=== PATIENT | female | born 1935 | race Caucasian/White ===

== ENCOUNTER 2016-09-20 08:15 | Inpatient (IN) ==
[2016-09-20 10:49] LABS: Hematocrit 32.5 % (35.3-44.9); Hemoglobin 10.4 g/dL (11.5-15.4); Mean Corpuscular Hemoglobin 29.3 pg (28.0-33.3); Mean Corpuscular Volume 91.5 fL (83.0-100.0); Mean Platelet Volume 9.6 fL (9.4-12.4); Platelet Count 219 K/mcL (140-400); Red Blood Count 3.55 M/mcL (3.82-4.97); Red Cell Distribution Width 13.1 % (11.5-14.5)
[2016-09-20] MEDS ORDERED: 0.9 % Sodium Chloride 1,000 ML IVC ONE (11:03)
[2016-09-20 11:04] LABS: Alanine Aminotransferase 24 Units/L (0-55); Albumin 3.3 g/dL (3.5-5.0); Albumin/Globulin Ratio 1.4 (1.1-2.2); Alkaline Phosphatase 73 Units/L (38-126); Aspartate Amino Transferase 33 Units/L (5-34); BUN/Creatinine Ratio 30 (6-26); Bilirubin,Total 0.9 mg/dL (0.2-1.2); Blood Urea Nitrogen 24 mg/dL (7-20); Calcium 8.3 mg/dL (8.6-10.8); Carbon Dioxide 21 mEq/L (19-29); Chloride 109 mEq/L (98-109); Globulin 2.4 g/dL (2.4-3.5); Glucose 156 mg/dL (70-99); Osmolality,Calculated 295 (280-300); Sodium 139 mEq/L (136-145); Total Protein 5.7 g/dL (6.0-8.3); eGFR For African Americans > 60 (> 60); eGFR For Non-African Americans > 60 (> 60)
[2016-09-20] MEDS ORDERED: Ondansetron 4 MG/2 ML VIAL IVP PRN (11:06)
[2016-09-20] MEDS ORDERED: Naloxone 0.4 MG/ML INJ IVP PRN (11:06)
[2016-09-20] MEDS ORDERED: 0.9 % Sodium Chloride 1,000 ML IVC SCH ×3 (11:15→15:15)
[2016-09-20 12:17] LABS: Magnesium 1.4 mg/dL (1.6-2.6)
--- NOTE | 2016-09-20 13:13 | Internal Med History&Physical ---
<Parish Page - Last Filed: 09/20/16 13:59> Date of Encounter: 09/20/16 Time of Encounter: 13:12 Assessment and Plan (1) GI bleed Current visit: Yes Status: Acute Currently the patient is hemodynamically stable. current Hg 10.4. This has dropped approximately a Gram since she was at the [place] ED. She has had active bleeding sine admission. I have ordered a second large bore IV and that is being placed now. Bleeding scan was performed and shows no active bleeding. Etiolo is likley upper given the history of Melena and NSAID use. However may also consider Diverticular given the amount of bleeding and diverticulosis seen on CT. I have started a protonix gtt. IV fluids. I have consulted Dr. Pond and discussed the case with him. We will keep her NPO and plan for EGD today. If negative and still bleeding may need further work up. No Pharmacologic DVT prophylaxis as she is actively bleeding. Hold antihypertensives. Appreciate Dr. Pond coming in today to Help us with this patient. (2) Acute blood loss anemia Current visit: Yes Status: Acute (3) Frail elderly Current visit: Yes Status: Acute (4) Gout Current visit: Yes Status: Acute advise against NSAIDS at this time. May consider different option as outpatient. No acute flairs at this time. (5) Hypertension Current visit: Yes Status: Acute holding lisinopril due to bleeding and had one episode of hypotention. continue to monitor closely. (6) Elevated BUN Current visit: Yes Status: Acute nonspecific but may support upper source of bleeding. (7) Hypomagnesemia Current visit: Yes Status: Acute replace (8) DVT prophylaxis Current visit: Yes Status: Acute EPCDs Internal Medicine - H&P: HPI Chief complaint: " I hace rectal bleeding" Admitted From: Emergency Dept Plans for Post Hospital Care: Home History of present illness: Ms. Holguin is a 81 year old female with pmh of HTN and gout. She states that she developed bleeding per rectum yesterday. However she states that the blood was dark initially and keeps getting joe. she had one large amount of bleeding here on the floor and then "passed a clot" down in Nuclear medicine. She dose admit to intermittent dizziness but states she has a 5 year history of vertigo. She denies chest pain or shortness of breath. No presyncope. She dose admit to havign some crampy lower right and lower left abdominal pain. This was mild and has resolved. She dose admit to recently being started on Aleve. She states that she takes 5 of the 12H extra strength pills everyday but dose not know the exact dose. She dose have a history of hemorrhoidal bleeding and has had surgery in the past for this. She states that this is much different and that the blood " is just pooring out" She dose not recall who her surgeon was but states it was [place]. She has had a colonoscopy in the past. Last colonoscopy per patient was 2011 and was remarkable only for hemorrhoids. She ahs no further complaints or concerns at this time. She has had nothing to eat today. Past Med Surg Social Fam HX - Past Medical History Medical history: hypertension, other (gout, hemorrhoids) Psychiatric history: no psych history - Past Surgical History Surgical History: orthopedic, other (foot), other (hemmorhoidal surgery) - Social History Smoking Status: Never smoker Smokeless Tobacco Status: No Alcohol use: none Drug use: none - Family History Mother Hx Family Cardiac Disorders: Yes (age 93) Internal Medicine - H&P: Meds Polyethylene Glycol 3350 [MiraLAX] 17 gm PO DAILY 01/18/16 [History] Lipoflavanoid 1 tab PO DAILY 04/14/16 [History] Meclizine [Antivert] 25 mg PO TID PRN #15 tablet 04/14/16 [Rx] Lisinopril-HCTZ 20-12.5 [Prinzide 20-12.5] 1 tab PO DAILY 09/20/16 [History] Allergies Sulfa (Sulfonamide Antibiotics) Allergy (Verified 09/20/16 07:09) Hives meloxicam Adverse Reaction (Verified 09/20/16 16:44) See Comments Blood in Stool- naproxen Adverse Reaction (Verified 09/20/16 16:44) See Comments Blood in stool- Penicillins [PCN] Adverse Reaction (Verified 09/20/16 16:44) See Comments Blood in stool nasal spray Allergy (Unknown, Uncoded 09/20/16 16:44) See Comments unsure All Systems PM: A 10-system review of systems was performed and is negative for pertinent findings except as documented above in the HPI. - Constitutional Constitutional: no anorexia, no chills, no excessive sweating, no fatigue, no fever(s), no falls, no lethargy, no malaise, no night sweats, no weakness, no weight gain, no weight loss - EENT Eyes: no blurry vision, no change in vision, no decreased night vision, no discharge, no loss of vision, no pain, no photophobia Ears: no decreased hearing, no ear discharge, no ear pain, no tinnitus Nose, mouth and throat: dry mouth, no bleeding gums, no dysphagia, no epistaxis , no nasal discharge, no neck pain, no sore throat - Cardiovascular Cardiovascular ROS IM: edema (HCTZ was recently stopped. mild. no orthopnea. ), no chest pain, no claudication, no diaphoresis, no dyspnea, no dyspnea on exertion, no lightheadedness, no palpitations, no syncope - Respiratory Respiratory: no cough, no dyspnea, no wheezing, no excessive phlegm production - Gastrointestinal Gastrointestinal: abdominal pain (as per HPI), hematochezia, melena, no diarrhea , no dyspepsia, no dysphagia, no early satiety, no hematemesis, no nausea, no tenesmus, no vomiting - Genitourinary Genitourinary: no change in urinary stream, no dysuria, no flank pain, no hematuria - Musculoskeletal Musculoskeletal ROS IM: no numbness, no tingling Additional comments: no new aches or pains - Integumentary Integumentary IM: no rash, no unusual bruising - Neurological Neurological ROS: vertigo, no confusion, no convulsions, no focal weakness, no numbness, no tingling, no tremor(s) - Endocrine Endocrine IM: no cold intolerance, no excessive sweating, no fatigue, no flushing, no heat intolerance, no polyphagia, no polyuria - Hematologic/Lymphatic Hematologic/Lymphatic: no easy bleeding, no easy bruising, no lymphadenopathy - Constitutional General appearance: Present: A&O X 3, no acute distress Exam: very pleasant - Head Head exam: Present: atraumatic, normocephalic - Eye Eye exam: Present: PERRL, conjuntiva pink, sclera anicteric Pupils: Present: PERRL - Neck Neck exam general surgery: Present: supple, trachea midline. Absent: lymphadenopathy - Respiratory Respiratory exam: Present: CTAB. Absent: accessory muscle use, rales, rhonchi, wheezes - Cardiovascular Cardiovascular exam: Present: RRR, +S1, +S2. Absent: diastolic murmur, gallop, rubs, systolic murmur - GI/Abdominal GI/Abdominal exam: Present: normal bowel sounds, soft, no peritoneal signs. Absent: distended, tenderness - Extremities Exam Extremities exam: Present: pedal edema (mild bilateral), warm, radial pulses palpable and symetrical. Absent: calf tenderness, cyanotic - Skin Skin exam: Present: dry, intact Internal Med - H&P Results - Labs CBC & Chem 7: 09/20/16 10:40 09/20/16 10:40 Labs: Short CBC 09/20/16 Range/Units 10:40 WBC 7.7 (4.3-11.1) K/mcL Hgb 10.4 L (11.5-15.4) g/dL Hct 32.5 L (35.3-44.9) % Plt Count 219 (140-400) K/mcL BMP 09/20/16 10:40 Sodium 139 Potassium 4.0 Chloride 109 Carbon Dioxide 21 BUN 24 H Creatinine 0.80 Glucose 156 H Calcium 8.3 L Liver Function 09/20/16 Range/Units 10:40 Total Bilirubin 0.9 (0.2-1.2) mg/dL AST 33 (5-34) Units/L ALT 24 (0-55) Units/L Alkaline Phosphatase 73 (38-126) Units/L Albumin 3.3 L (3.5-5.0) g/dL - Impressions ITS Impressions GI Bleed Scan Nuclear Medicine 09/20/16 10:30 IMPRESSION: No evidence of active GI bleeding during acquisition. RECOMMENDATIONS: If the patient shows hemodynamic signs of an active bleed in the next 20 hours, additional images can be acquired. D/ / 09/20/2016 12:44:00 Grzegorz Augustin MD / joe Interpreting Provider: Grzegorz Augustin MD <Skinny Caro - Last Filed: 09/20/16 17:05> Date of Encounter: 09/20/16 Internal Medicine - H&P: HPI History of present illness: Ms. Holguin is a 81 year old female All Systems PM: A 10-system review of systems was performed and is negative for pertinent findings except as documented above in the HPI. - Constitutional Vitals: Temp Pulse Resp BP Pulse Ox 98.2 F 95 12 143/80 98 09/20/16 14:52 09/20/16 15:21 09/20/16 15:21 09/20/16 15:21 09/20/16 15:21 Internal Med - H&P Results - Labs CBC & Chem 7: 09/20/16 16:10 09/20/16 10:40 Labs: Short CBC 09/20/16 09/20/16 Range/Units 10:40 16:10 WBC 7.7 (4.3-11.1) K/mcL Hgb 10.4 L 9.0 L (11.5-15.4) g/dL Hct 32.5 L 27.1 L (35.3-44.9) % Plt Count 219 (140-400) K/mcL BMP 09/20/16 10:40 Sodium 139 Potassium 4.0 Chloride 109 Carbon Dioxide 21 BUN 24 H Creatinine 0.80 Glucose 156 H Calcium 8.3 L Liver Function 09/20/16 Range/Units 10:40 Total Bilirubin 0.9 (0.2-1.2) mg/dL AST 33 (5-34) Units/L ALT 24 (0-55) Units/L Alkaline Phosphatase 73 (38-126) Units/L Albumin 3.3 L (3.5-5.0) g/dL - Impressions ITS Impressions GI Bleed Scan Nuclear Medicine 09/20/16 10:30 IMPRESSION: No evidence of active GI bleeding during acquisition. RECOMMENDATIONS: If the patient shows hemodynamic signs of an active bleed in the next 20 hours, additional images can be acquired. D/ / 09/20/2016 12:44:00 Grzegorz Augustin MD / [facility] Interpreting Provider: Grzegorz Augustin MD - Attending Attestation I examined this patient and my medical decision-making was reviewed with the Resident Physician, Dr. Page. I agree with the documented findings, disposition and treatment plan as described except to the extent set forth below. Patient appears diaphoretic anxious and pale. Heart is tachycardic regular S1- S2. Lungs are clear, abdomen soft nontender nondistended. Prior to my examining the patient she had passed a large amount of blood with clots per rectum which can still be seen and the potty. Patient has severe acute GI bleed for which we will treat her with IV fluids, nothing by mouth, consult GI. She will have an EGD this afternoon. Discussed case with Dr. Pond. Start Protonix drip. We will check hemoglobin and hematocrit every 4 hours for the next 12 hours. Then every 12 hours stabilizes. I proceeded to order a nuclear medicine bleeding scan which was done emergently and I have reviewed the report which shows no evidence of bleeding. Given her history of NSAID use and history consistent with melena we anticipate the need for emergent EGD tomorrow evaluate for bleeding gastric or duodenal ulcer. I have reviewed the CT abdomen and pelvis from the outside facility which shows evidence of diverticulosis without diverticulitis. This could be a diverticular bleed. I have reevaluated the patient after EGD. EGD found evidence of gastritis but no source of bleed. At this point I suspect the patient could have a massive lower GI bleed secondary to diverticular bleed. We will monitor the patient closely overnight. Continue with hemoglobin and hematocrit every 4 hours. Transfuse 1 unit PRBC stat. I discussed the case with the surgeon who recommends re-scanning the patient with nuclear medicine bleeding scan if she appears to be unstable and possible consult to interventional radiology for coiling if she becomes unstable. The patient remains unstable and there is high probability of emergent and significant clinical decompensation with potential impairment of organ function including cardiovascular system. I have performed 45 minutes of critical care time which involved decision making of high complexity to assess, manipulate, and support vital organ system, in order to prevent further life threatening deterioration of the patient's condition. The time involved in the performance of any procedures and a resident teaching was not counted toward critical care time and will be billed separately. Critical care time was spent evaluating the patient, reviewing EKGs, telemetry tracing, imaging studies and laboratory data , discussing the case with consultants, ordering medications and reevaluating for clinical response.
--- NOTE | 2016-09-20 14:15 | General Surgery Consult Note ---
Date of Encounter: 09/20/16 Time of Encounter: 14:01 History of Present Illness Requesting physician: Parish Page History of present illness: 81 yo, referred for further evaluation GI bleeding. Patient transferred to [facility] after presenting to [facility] with complaints of rectal bleeding 3. While waiting for the squad the patient describes 3 bloody bowel movements which were characterized as moderate to large in volume. After arriving at [facility] she had another bloody bowel movement. The emergency department assessed the bleeding is bright red the patient describes the initial bowel movement as black it is now "dark". An RBC tagged bleeding scan was completed earlier today and was found negative for any active GI hemorrhage. The patient was referred for possible upper GI bleeding as the patient admits to taking copious nonsteroidal anti-inflammatories as well as antigout medication since approximately June. The patient complains of feeling very weak and dizzy but also admits to having vertigo. The patient has been nothing by mouth we will proceed with an EGD MELINDA. Past medical history: Gout, vertigo, hypertension Surgical history: Tonsillectomy; hemorrhoidectomy 2, the most recent 2011; colonoscopy in 2011; toe surgery Allergies: Sulfa and penicillin Medications: Lisinopril 20 mg by mouth daily Lipoflavanoid 100 mg by mouth daily Meclizine 25 mg by mouth 3 times a day when necessary Social history: Patient is , lives at home with her spouse; G0; she has never smoked. She admits to a rare wine beverage. She denies any illicit drug use Family history: Noncontributory Physical examination reveals a woman who appears younger than her stated age. She is lying comfortably in her hospital bed in no acute distress. The patient is afebrile, 98.9; pulse currently elevated, range 101-103; respirations 18, blood pressure 140/84 Skin: Warm, no obvious jaundice Lungs: Clear, no obvious abdominal pain with deep inspiration Cardiac: Rapid rate but no discernible murmurs Abdomen: Soft, nontender. Bowel sounds present. No discernible intra- abdominal masses or rebound. Extremities without clubbing cyanosis or edema Rectal examination not necessary as there was obvious dark red blood per rectum Laboratories: White count 7.7, hemoglobin at 07:30 11.6, repeat at 10:40 10.4; hematocrit 35.9 at 07:30; 32.5 at 10:40 Platelet count has also diminished from 219,000 193,000; PT 12.8, INR 1.2 Electrolytes within normal limits. BUN elevated, currently 24. Creatinine 0.84. The elevated BUN is consistent with blood in the GI tract. Impression: 81-year-old female transferred to [facility] after presenting to [facility] with new onset rectal bleeding. Referral for upper endoscopy was placed after the patient revealed ingesting NSAIDs 4-5 times daily for gout symtoms. Rbc tagged bleeding scan completed earlier today, demonstrated the appropriate activity seen within the blood pool including the great vessels, heart, liver, and spleen. A small amount of activity had accumulated in the bladder. No abnormal accumulation was identified to suggest active bleeding during the study. EGD discussed with patient. Risks include hemorrhage, aspiration, cramping abdominal pain, bloating and perforation. The EGD may be non diagnostic. The patient expressed understanding. Consent for the procedure was granted. Past Med Surg Social Fam HX - Past Medical History Medical history: hypertension, other Psychiatric history: no psych history - Social History Smoking Status: Never smoker Smokeless Tobacco Status: No Alcohol use: none Drug use: none Medications and Allergies Lisinopril [Zestril] 20 mg PO DAILY 01/18/16 [History] Polyethylene Glycol 3350 [MiraLAX] 17 gm PO DAILY 01/18/16 [History] Lipoflavanoid 100 mg PO DAILY 04/14/16 [History] Meclizine [Antivert] 25 mg PO TID PRN #15 tablet 04/14/16 [Rx] Allergies Sulfa (Sulfonamide Antibiotics) Allergy (Verified 09/20/16 07:09) Hives Penicillins [PCN] Adverse Reaction (Verified 09/20/16 07:09) See Comments sts caused rectal bleeding nasal spray Allergy (Uncoded 09/20/16 07:09) See Comments unsure Review of Systems All systems PM: A 10-system review of systems was performed and is negative for pertinent findings except as documented above in the HPI. Results - Labs 09/20/16 10:40 09/20/16 10:40 Abnormal lab results RBC 3.55 M/mcL (3.82-4.97) L 09/20/16 10:40 Hgb 10.4 g/dL (11.5-15.4) L 09/20/16 10:40 Hct 32.5 % (35.3-44.9) L 09/20/16 10:40 BUN 24 mg/dL (7-20) H 09/20/16 10:40 BUN/Creatinine Ratio 30 (6-26) H 09/20/16 10:40 Glucose 156 mg/dL (70-99) H 09/20/16 10:40 Calcium 8.3 mg/dL (8.6-10.8) L 09/20/16 10:40 Magnesium 1.4 mg/dL (1.6-2.6) L 09/20/16 10:40 Serum Total Protein 5.7 g/dL (6.0-8.3) L 09/20/16 10:40 Albumin 3.3 g/dL (3.5-5.0) L 09/20/16 10:40 Diabetes panel 09/20/16 Range/Units 10:40 Sodium 139 (136-145) mEq/L Potassium 4.0 (3.5-4.5) mEq/L Chloride 109 (98-109) mEq/L Carbon Dioxide 21 (19-29) mEq/L BUN 24 H (7-20) mg/dL Creatinine 0.80 (0.57-1.11) mg/dL Glucose 156 H (70-99) mg/dL Calcium 8.3 L (8.6-10.8) mg/dL AST 33 (5-34) Units/L ALT 24 (0-55) Units/L Alkaline Phosphatase 73 (38-126) Units/L Albumin 3.3 L (3.5-5.0) g/dL Calcium panel 09/20/16 Range/Units 10:40 Calcium 8.3 L (8.6-10.8) mg/dL Albumin 3.3 L (3.5-5.0) g/dL Pituitary panel 09/20/16 Range/Units 10:40 Sodium 139 (136-145) mEq/L Potassium 4.0 (3.5-4.5) mEq/L Chloride 109 (98-109) mEq/L Carbon Dioxide 21 (19-29) mEq/L BUN 24 H (7-20) mg/dL Creatinine 0.80 (0.57-1.11) mg/dL Glucose 156 H (70-99) mg/dL Calcium 8.3 L (8.6-10.8) mg/dL Adrenal panel 09/20/16 Range/Units 10:40 Sodium 139 (136-145) mEq/L Potassium 4.0 (3.5-4.5) mEq/L Chloride 109 (98-109) mEq/L Carbon Dioxide 21 (19-29) mEq/L BUN 24 H (7-20) mg/dL Creatinine 0.80 (0.57-1.11) mg/dL Glucose 156 H (70-99) mg/dL Calcium 8.3 L (8.6-10.8) mg/dL Total Bilirubin 0.9 (0.2-1.2) mg/dL AST 33 (5-34) Units/L ALT 24 (0-55) Units/L Alkaline Phosphatase 73 (38-126) Units/L Albumin 3.3 L (3.5-5.0) g/dL All other labs normal. Consult Discharge Plan - Plan Referrals: Mk Joe MD [Primary Care Provider] -
[2016-09-20] MEDS ORDERED: Magnesium Sulfate 2 GM in D5% in Water 100 ML IVPB ONE (14:16)
[2016-09-20] MEDS ORDERED: *HR* Midazolam HCl 5 MG/5 ML VIAL IVP PRN ×2 (14:36→15:02)
[2016-09-20] MEDS ORDERED: Tetracaine/Benzocaine/Butamben 200MG/SPRAY (100SPY/BOT) MM ONE ×2 (14:36→15:02)
[2016-09-20] MEDS ORDERED: *HR* FentaNYL (PF) 100 MCG/2 ML VIAL IVP PRN ×2 (14:36→15:02)
[2016-09-20] MEDS ORDERED: Simethicone 40 MG/0.6 ML MLS IR ONE (14:36)
--- NOTE | 2016-09-20 14:39 | Pre-Sedation Evaluation ---
Pre-sedation evaluation - Pre-sedation checklist Date of procedure: 09/20/16 Procedure: EGD H&P (including ROS) documented in medical record: Yes Previous reaction to sedatives/anesthetics: No Dietary Status: No solid food in preceding 4 hrs and no liquid in preceding 2 hrs Airway Assessment: Patient can open mouth completely, TMJ function normal, Micrognathia (under-bite, receding chin) absent, Neck with adequate range of motion Dentition: No loose teeth or bridges Possible difficult airway: No ASA Classification *see protocol: CLASS I-Normal, healthy patient, CLASS II- Mild systemic disease Plan of Care: Pt appropriate candidate for procedure/moderate/conscious sedation , Risks/benefits of procedure/sedation discussed w/ patient/family, If not NPO; Risk of intake outweiged by necessity to perform procedure
[2016-09-20] MEDS ORDERED: *HR* Midazolam HCl 5 MG/5 ML VIAL IVP ONE (14:42)
[2016-09-20] MEDS ORDERED: *HR* FentaNYL (PF) 100 MCG/2 ML VIAL ONE (14:44)
[2016-09-20] MEDS: Pantoprazole 40 MG in 0.9 % Sodium Chloride Mini Bag 100 ML IVC SCH ×2 (15:30→20:00)
[2016-09-20 16:17] LABS: Hematocrit 27.1 % (35.3-44.9)
[2016-09-20] MEDS ORDERED: 0.9 % Sodium Chloride 250 ML ONE (18:11)
[2016-09-20] MEDS ORDERED: Lidocaine -MPF 1% 2 ML VIAL ID PRN (20:01)
[2016-09-21 00:36] LABS: Hematocrit 28.9 % (35.3-44.9); Hemoglobin 9.6 g/dL (11.5-15.4)
[2016-09-21 00:41] LABS: INR 1.1; Prothrombin Time 12.2 Seconds (9.4-12.1)
[2016-09-21 00:43] LABS: Activated Partial Thrombo Time 25.8 Seconds (26.0-36.0)
[2016-09-21] MEDS: Pantoprazole 40 MG in 0.9 % Sodium Chloride Mini Bag 100 ML IVC SCH ×2 (00:51→05:08)
[2016-09-21 09:53] LABS: BUN/Creatinine Ratio 26 (6-26); Blood Urea Nitrogen 20 mg/dL (7-20); Calcium 7.9 mg/dL (8.6-10.8); Carbon Dioxide 24 mEq/L (19-29); Chloride 114 mEq/L (98-109); Glucose 103 mg/dL (70-99); Magnesium 1.9 mg/dL (1.6-2.6); Osmolality,Calculated 299 (280-300); Potassium 3.8 mEq/L (3.5-4.5); Sodium 143 mEq/L (136-145); eGFR For African Americans > 60 (> 60); eGFR For Non-African Americans > 60 (> 60)
[2016-09-21] MEDS ORDERED: Polyethylene Glycol 3350 255 GM POWDER PO ONE (11:50)
--- NOTE | 2016-09-21 11:50 | General Surgery Progress Note ---
Date of Encounter: 09/21/16 Time of Encounter: 11:46 Subjective Patient reports: feels better, other (no further rectal bleeding) Narrative: General Surgery - patient feeling better; weakness has improved, patient is feeling stronger. Her only complaint at present is fatigue The patient remains afebrile, 98.4; pulse 74, respirations 14, blood pressure 136/70 There is been no further rectal bleeding. H&H 9.6/28.9 (yesterday 9.0/27.1) Discussed with patient. Colonoscopy is recommended but the bowel prep was deferred today due to the patient's overall malaise and feeling of weakness. With her improved status, and diminished symptoms, colonoscopy has been recommended. The patient is ready to proceed. A mechanical bowel prep will be completed today with colonoscopy completed using IV meds in the a.m. The procedure was discussed. Risks include hemorrhage, infection, cramping abdominal pain, bloating, and perforation. He also discussed possibility that colonoscopy will be done nondiagnostic for the etiology of the patient's GI hemorrhage. Objective Vital Signs - Last 8 Hours Temp Pulse Resp BP Pulse Ox 09/21/16 07:35 98.4 F 74 14 136/70 97 09/21/16 04:20 98.4 F 74 17 125/62 95 Intake and Output 09/20/16 09/21/16 09/21/16 23:59 07:59 15:59 Intake Total 700 / 700 400 / 400 Output Total 600 / 600 0 / 0 600 / 600 Balance 100 / 100 400 / 400 -600 / -600 Intake: IV Fluids 100 / 100 400 / 400 0.9 % Sodium Chloride 1, 200 / 200 000 ML @ 125 mls/hr IVC . Q8H LINDSAY Rx#:[id number] Protonix 40 MG In 0.9 % 100 / 100 200 / 200 Sodium Chloride (Mini-Bag +) 100 ML @ 20 mls/hr IVC .Q5H [facility]INDSAY Rx#: [id number] Oral 0 / 0 Blood Product 600 / 600 Rbcs Leuko Poor As-3 Ph 600 / 600 Unit [id number] Output: Urine 600 / 600 0 / 0 600 / 600 Other: Meal NPO Weight 62 kg Blood Glucose* 100 99 Patient Weight 09/21/16 23:59 Weight 62 kg - Labs 09/21/16 00:29 09/21/16 09:23 Diabetes panel 09/21/16 Range/Units 09:23 Sodium 143 (136-145) mEq/L Potassium 3.8 (3.5-4.5) mEq/L Chloride 114 H (98-109) mEq/L Carbon Dioxide 24 (19-29) mEq/L BUN 20 (7-20) mg/dL Creatinine 0.78 (0.57-1.11) mg/dL Glucose 103 H (70-99) mg/dL Calcium 7.9 L (8.6-10.8) mg/dL Calcium panel 09/21/16 Range/Units 09:23 Calcium 7.9 L (8.6-10.8) mg/dL Pituitary panel 09/21/16 Range/Units 09:23 Sodium 143 (136-145) mEq/L Potassium 3.8 (3.5-4.5) mEq/L Chloride 114 H (98-109) mEq/L Carbon Dioxide 24 (19-29) mEq/L BUN 20 (7-20) mg/dL Creatinine 0.78 (0.57-1.11) mg/dL Glucose 103 H (70-99) mg/dL Calcium 7.9 L (8.6-10.8) mg/dL Adrenal panel 09/21/16 Range/Units 09:23 Sodium 143 (136-145) mEq/L Potassium 3.8 (3.5-4.5) mEq/L Chloride 114 H (98-109) mEq/L Carbon Dioxide 24 (19-29) mEq/L BUN 20 (7-20) mg/dL Creatinine 0.78 (0.57-1.11) mg/dL Glucose 103 H (70-99) mg/dL Calcium 7.9 L (8.6-10.8) mg/dL Consult Discharge Plan - Plan Referrals: Mk Joe MD [Primary Care Provider] -
--- NOTE | 2016-09-21 15:02 | Internal Med Progress Note ---
<Parish Page - Last Filed: 09/21/16 15:00> Date of Encounter: 09/21/16 Time of Encounter: 09:25 - Assessment and plan (1) GI bleed Current Visit: Yes Status: Acute Assessment and plan: Patient is hypodermically stable. No further bleeding episodes since yesterday. Hg 9.6 today. S/P 1 unit PRBC Colonoscopy tomorrow. Continue to follow H/H Appreciate Dr. Pond. (2) Acute blood loss anemia Current Visit: Yes Status: Acute Assessment and plan: as stated above. (3) Frail elderly Current Visit: Yes Status: Acute (4) Gout Current Visit: Yes Status: Acute Assessment and plan: continue to hold NSAIDS. No acute flairs at this time. (5) Hypertension Current Visit: Yes Status: Acute Assessment and plan: above goal. Will add PRN Hydralazine. (6) Elevated BUN Current Visit: Yes Status: Acute (7) Hypomagnesemia Current Visit: Yes Status: Resolved Assessment and plan: resolved (8) DVT prophylaxis Current Visit: Yes Status: Acute Assessment and plan: EPCDs - Subjective Interval history: No major events overnight. PAtient states that she had had no further bloody bowel movements since I saw her Yesterday. She denies fever chills, dyspnea, abdominal pain. She has no Further complaints or concerns at this time. - Constitutional Vitals: Temp Pulse Resp BP Pulse Ox 97.9 F 67 16 160/72 97 09/21/16 12:13 09/21/16 12:13 09/21/16 12:13 09/21/16 12:13 09/21/16 12:13 General appearance: Present: A&O X 3, no acute distress - Head Head exam: Present: atraumatic, normal inspection, normocephalic - Eye Eye exam: Present: PERRL, conjuntiva pink, sclera anicteric Pupils: Present: PERRL - Neck Neck exam general surgery: Present: supple, trachea midline. Absent: lymphadenopathy - Respiratory Respiratory exam: Present: CTAB. Absent: accessory muscle use, rales, rhonchi, wheezes - Cardiovascular Cardiovascular exam: Present: RRR, +S1, +S2. Absent: diastolic murmur, gallop, rubs, systolic murmur - GI/Abdominal GI/Abdominal exam: Present: normal bowel sounds, soft, no peritoneal signs. Absent: distended, tenderness - Extremities Exam Extremities exam: Present: warm, radial pulses palpable and symetrical. Absent : calf tenderness, cyanotic, pedal edema - Skin Skin exam: Present: dry, intact Internal Medicine: Result - Labs CBC & Chem 7: 09/21/16 00:29 09/21/16 09:23 Labs: Short CBC 09/20/16 09/21/16 Range/Units 16:10 00:29 Hgb 9.0 L 9.6 L (11.5-15.4) g/dL Hct 27.1 L 28.9 L (35.3-44.9) % [facility] 09/21/16 09:23 Sodium 143 Potassium 3.8 Chloride 114 H Carbon Dioxide 24 BUN 20 Creatinine 0.78 Glucose 103 H Calcium 7.9 L - ABG Interpretation ABG results: PT/INR, D-dimer PT 12.2 Seconds (9.4-12.1) H 09/21/16 00:29 Consult Discharge Plan - Plan Referrals: Mk Joe MD [Primary Care Provider] - <Skinny Caro - Last Filed: 09/21/16 18:50> Date of Encounter: 09/21/16 - Constitutional Vitals: Temp Pulse Resp BP Pulse Ox 97.9 F 104 16 163/73 97 09/21/16 15:43 09/21/16 15:43 09/21/16 15:43 09/21/16 15:43 09/21/16 15:43 Internal Medicine: Result - Labs CBC & Chem 7: 09/21/16 00:29 09/21/16 09:23 Labs: Short CBC 09/21/16 Range/Units 00:29 Hgb 9.6 L (11.5-15.4) g/dL Hct 28.9 L (35.3-44.9) % [facility] 09/21/16 09:23 Sodium 143 Potassium 3.8 Chloride 114 H Carbon Dioxide 24 BUN 20 Creatinine 0.78 Glucose 103 H Calcium 7.9 L - ABG Interpretation ABG results: PT/INR, D-dimer PT 12.2 Seconds (9.4-12.1) H 09/21/16 00:29 - Attending Attestation I examined this patient and my medical decision-making was reviewed with the Resident Physician, Dr. Page I agree with the documented findings, disposition and treatment plan as described except to the extent set forth below. On exam she is in no acute distress awake alert oriented. Pupils are equal round reactive to light conjunctivae are anicteric. Heart is regular S1-S2 no murmurs. Abdomen soft nontender to palpation. Have discussed the case with Dr. Pond. Plan for colon prep today and colonoscopy tomorrow. Continue IV fluids. Monitor hemoglobin and hematocrit.
[2016-09-21] MEDS: Pantoprazole 40 MG VIAL IVP SCH (18:03)
[2016-09-21] MEDS ORDERED: *HR* LORazepam 0.5 MG TABLET PO ONE (20:46)
[2016-09-22] MEDS: Pantoprazole 40 MG VIAL IVP SCH (05:13)
[2016-09-22] MEDS ORDERED: Acetaminophen IV 1,000 MG/100 ML INFUS..BTL IVPB ONE (08:53)
[2016-09-22] MEDS ORDERED: 0.9 % Sodium Chloride 1,000 ML IVC SCH ×2 (09:00→11:00)
[2016-09-22 10:07] LABS: Basophils % 0.6 %; Eosinophils # 0.1 K/mcL (0.0-0.6); Eosinophils % 0.7 %; Hematocrit 28.3 % (35.3-44.9); Hemoglobin 9.3 g/dL (11.5-15.4); Immature Granulocytes % 1.3 % (0-4); Lymphocytes % 14.7 %; Mean Corpuscular HGB Conc 32.9 g/dL (31.6-35.5); Mean Corpuscular Hemoglobin 30.2 pg (28.0-33.3); Mean Corpuscular Volume 91.9 fL (83.0-100.0); Mean Platelet Volume 9.5 fL (9.4-12.4); Monocytes # 0.4 K/mcL (0.0-1.3); Monocytes % 6.2 %; Neutrophils # 5.2 K/mcL (1.6-8.9); Platelet Count 162 K/mcL (140-400); Red Blood Count 3.08 M/mcL (3.82-4.97); Red Cell Distribution Width 14.2 % (11.5-14.5); Segmented Neutrophils % 76.5 %
[2016-09-22] MEDS ORDERED: *HR* Midazolam HCl 5 MG/5 ML VIAL IVP ONE (10:37)
[2016-09-22] MEDS ORDERED: *HR* FentaNYL (PF) 100 MCG/2 ML VIAL ONE (10:38)
[2016-09-22] MEDS ORDERED: Simethicone 40 MG/0.6 ML MLS IR ONE (10:58)
[2016-09-22 11:24] LABS: BUN/Creatinine Ratio 12 (6-26); Blood Urea Nitrogen 9 mg/dL (7-20); Calcium 8.3 mg/dL (8.6-10.8); Carbon Dioxide 24 mEq/L (19-29); Chloride 109 mEq/L (98-109); Glucose 114 mg/dL (70-99); Osmolality,Calculated 294 (280-300); Potassium 3.4 mEq/L (3.5-4.5); Sodium 142 mEq/L (136-145); eGFR For African Americans > 60 (> 60); eGFR For Non-African Americans > 60 (> 60)
--- NOTE | 2016-09-22 12:00 | Pre-Sedation Evaluation ---
Pre-sedation evaluation - Pre-sedation checklist Date of procedure: 09/22/16 Procedure: Colonoscopy Recent Vitals: Last Vital Signs Temp 98.6 F 09/22/16 08:30 Pulse 102 09/22/16 11:29 Resp 20 09/22/16 11:29 BP 162/80 09/22/16 11:29 Pulse Ox 97 09/22/16 11:29 H&P (including ROS) documented in medical record: Yes Previous reaction to sedatives/anesthetics: No Dietary Status: No solid food in preceding 4 hrs and no liquid in preceding 2 hrs Airway Assessment: Patient can open mouth completely, TMJ function normal, Micrognathia (under-bite, receding chin) absent, Neck with adequate range of motion Dentition: No loose teeth or bridges Possible difficult airway: No ASA Classification *see protocol: CLASS II-Mild systemic disease Plan of Care: Pt appropriate candidate for procedure/moderate/conscious sedation , Risks/benefits of procedure/sedation discussed w/ patient/family, If not NPO; Risk of intake outweiged by necessity to perform procedure
[2016-09-22] MEDS: *HR* FentaNYL (PF) 100 MCG/2 ML VIAL IVP PRN ×3 (12:02→12:17)
[2016-09-22] MEDS: *HR* Midazolam HCl 5 MG/5 ML VIAL IVP PRN ×5 (12:03→12:25)
--- NOTE | 2016-09-22 14:57 | Internal Med Progress Note ---
<Parish Page - Last Filed: 09/22/16 14:54> Date of Encounter: 09/22/16 Time of Encounter: 14:54 - Assessment and plan (1) GI bleed Current Visit: Yes Status: Acute Assessment and plan: No further episodes of bleeding. Patient had diverticulosis and a single polyp with the Colonoscopy this afternoon. Patient has been placed on a regular diet. She is complaining of feeling very weak ( generalized) and also a bit " whoozy" additionally she was tachycardc this AM which resolved with IV fluids. We will continue to observe her tonight. If unable to tolerate diet may consider a low rate of maintenance IV fluids. We will plan to DC her in the AM if she continues to medically improve. (2) Acute blood loss anemia Current Visit: Yes Status: Acute Assessment and plan: down trending. Repeat H/H in the Am. (3) Frail elderly Current Visit: Yes Status: Acute (4) Gout Current Visit: Yes Status: Acute Assessment and plan: continue to hold NSAIDS. No acute flairs at this time. (5) Hypertension Current Visit: Yes Status: Acute Assessment and plan: at goal. continue PRN Hydralazine. add back home lisinopril in the AM. (6) Elevated BUN Current Visit: Yes Status: Acute (7) Hypomagnesemia Current Visit: Yes Status: Resolved (8) DVT prophylaxis Current Visit: Yes Status: Acute Assessment and plan: EPCDs - Subjective Interval history: No major events overnight. Patient denies further bleeding episodes. She states that she had a "very rough night". She states she slept very little. She also complains of her neck hurting. She states it is mild to moderate and is like her chronic neck pain. She also complains of seasonal allergies with rhinorrea and sinus pressure beginning last night. She also states that she has a lot of anxiety about the procedure today and about what they migh find. She denies any chest pain. She admits to feeling generally weak. Denies any numbness or paresthesias. She has no further complaints or concerns at this time. - Constitutional Vitals: Temp Pulse Resp BP Pulse Ox 97.8 F 96 16 126/71 95 09/22/16 13:19 09/22/16 13:19 09/22/16 13:19 09/22/16 13:19 09/22/16 13:19 General appearance: Present: A&O X 3, no acute distress - Head Head exam: Present: atraumatic, normocephalic - Eye Eye exam: Present: PERRL, conjuntiva pink, sclera anicteric Pupils: Present: PERRL - Neck Neck exam general surgery: Present: supple, trachea midline. Absent: lymphadenopathy - Respiratory Respiratory exam: Present: CTAB. Absent: accessory muscle use, rales, rhonchi, wheezes - Cardiovascular Cardiovascular exam: Present: RRR, +S1, +S2. Absent: diastolic murmur, gallop, rubs, systolic murmur - GI/Abdominal GI/Abdominal exam: Present: normal bowel sounds, soft, no peritoneal signs. Absent: distended, tenderness - Extremities Exam Extremities exam: Present: warm, radial pulses palpable and symetrical. Absent : calf tenderness, cyanotic, pedal edema - Skin Skin exam: Present: dry, intact Internal Medicine: Result - Labs CBC & Chem 7: 09/22/16 10:00 09/22/16 10:00 Labs: Short CBC 09/22/16 Range/Units 10:00 WBC 6.8 (4.3-11.1) K/mcL Hgb 9.3 L (11.5-15.4) g/dL Hct 28.3 L (35.3-44.9) % Plt Count 162 (140-400) K/mcL Neutrophils # 5.2 (1.6-8.9) K/mcL BMP 09/22/16 10:00 Sodium 142 Potassium 3.4 L Chloride 109 Carbon Dioxide 24 BUN 9 D Creatinine 0.74 Glucose 114 H Calcium 8.3 L - ABG Interpretation ABG results: PT/INR, D-dimer PT 12.2 Seconds (9.4-12.1) H 09/21/16 00:29 Consult Discharge Plan - Plan Referrals: Mk Joe MD [Primary Care Provider] - <Skinny Caro - Last Filed: 09/22/16 17:40> Date of Encounter: 09/22/16 - Constitutional Vitals: Temp Pulse Resp BP Pulse Ox 97.5 F L 88 18 112/71 97 09/22/16 15:29 09/22/16 15:29 09/22/16 15:29 09/22/16 15:29 09/22/16 15:29 Internal Medicine: Result - Labs CBC & Chem 7: 09/22/16 10:00 09/22/16 10:00 Labs: Short CBC 09/22/16 Range/Units 10:00 WBC 6.8 (4.3-11.1) K/mcL Hgb 9.3 L (11.5-15.4) g/dL Hct 28.3 L (35.3-44.9) % Plt Count 162 (140-400) K/mcL Neutrophils # 5.2 (1.6-8.9) K/mcL BMP 09/22/16 10:00 Sodium 142 Potassium 3.4 L Chloride 109 Carbon Dioxide 24 BUN 9 D Creatinine 0.74 Glucose 114 H Calcium 8.3 L - ABG Interpretation ABG results: PT/INR, D-dimer PT 12.2 Seconds (9.4-12.1) H 09/21/16 00:29 - Attending Attestation I examined this patient and my medical decision-making was reviewed with the Resident Physician, Dr Page. I agree with the documented findings, disposition and treatment plan as described except to the extent set forth below. Patient appears in no acute distress awake alert oriented, mildly sedated postprocedure. Heart is regular S1-S2. Lungs are clear. Abdomen soft. Patient had a polyp removed. Findings of diverticulosis without diverticulitis and no source of bleed. Given her recent significant GI bleed and polypectomy today we will monitor the patient overnight and check hemoglobin and hematocrit in the morning and if stable consider discharging her home.
[2016-09-23 03:25] LABS: Basophils # 0.1 K/mcL (0.0-0.2); Basophils % 0.6 %; Eosinophils # 0.2 K/mcL (0.0-0.6); Eosinophils % 1.9 %; Hematocrit 26.9 % (35.3-44.9); Hemoglobin 8.6 g/dL (11.5-15.4); Immature Granulocytes % 1.3 % (0-4); Lymphocytes # 1.2 K/mcL (0.6-4.6); Lymphocytes % 15.5 %; Mean Corpuscular Hemoglobin 29.9 pg (28.0-33.3); Mean Corpuscular Volume 93.4 fL (83.0-100.0); Mean Platelet Volume 9.9 fL (9.4-12.4); Monocytes # 0.5 K/mcL (0.0-1.3); Monocytes % 5.9 %; Platelet Count 163 K/mcL (140-400); Red Blood Count 2.88 M/mcL (3.82-4.97); Red Cell Distribution Width 14.2 % (11.5-14.5); Segmented Neutrophils % 74.8 %
[2016-09-23 03:36] LABS: BUN/Creatinine Ratio 16 (6-26); Blood Urea Nitrogen 13 mg/dL (7-20); Calcium 8.3 mg/dL (8.6-10.8); Carbon Dioxide 26 mEq/L (19-29); Chloride 109 mEq/L (98-109); Glucose 133 mg/dL (70-99); Magnesium 1.5 mg/dL (1.6-2.6); Osmolality,Calculated 292 (280-300); Potassium 3.4 mEq/L (3.5-4.5); Sodium 140 mEq/L (136-145); eGFR For African Americans > 60 (> 60); eGFR For Non-African Americans > 60 (> 60)
[2016-09-23] MEDS ORDERED: Magnesium Oxide 400 MG TABLET PO SCH (09:00)
[2016-09-23 10:59] VITALS: BP 152/76
--- NOTE | 2016-09-23 11:37 | Discharge Summary ---
<Parish Page - Last Filed: 09/23/16 11:49> Date of Encounter: 09/23/16 Time of Encounter: 11:34 - Discharge Diagnosis (1) GI bleed Priority: Primary Status: Acute Qualifiers: Qualified Code(s): K92.2 - Gastrointestinal hemorrhage, unspecified (2) Acute blood loss anemia Priority: Secondary Status: Acute (3) Frail elderly Priority: Secondary Status: Acute (4) Gout Priority: Secondary Status: Acute Comments: RESUME ALLOPURINOL. hOLD nsaids UNTIL YOU DISCUSS WITH YOUR pcp Qualifiers: Qualified Code(s): M10.9 - Gout, unspecified (5) Hypertension Priority: Secondary Status: Acute Qualifiers: Qualified Code(s): I10 - Essential (primary) hypertension (6) Elevated BUN Priority: Secondary Status: Acute (7) Hypomagnesemia Priority: Secondary Status: Resolved (8) DVT prophylaxis Priority: Secondary Status: Acute - Discharge Medications Prescriptions: Magnesium Oxide [Mag-Ox] 400 mg PO BID 3 Days Home Medications: Polyethylene Glycol 3350 [MiraLAX] 17 gm PO DAILY 01/18/16 [History] Lipoflavanoid 1 tab PO DAILY 04/14/16 [History] Meclizine [Antivert] 25 mg PO TID PRN #15 tablet 04/14/16 [Rx] Lisinopril-HCTZ 20-12.5 [Prinzide 20-12.5] 1 tab PO DAILY 09/20/16 [History] Magnesium Oxide [Mag-Ox] 400 mg PO BID 3 Days 09/23/16 [Rx] Allergies/Adverse Reactions: Allergies Sulfa (Sulfonamide Antibiotics) Allergy (Verified 09/20/16 07:09) Hives meloxicam Adverse Reaction (Verified 09/20/16 16:44) See Comments Blood in Stool- naproxen Adverse Reaction (Verified 09/20/16 16:44) See Comments Blood in stool- Penicillins [PCN] Adverse Reaction (Verified 09/20/16 16:44) See Comments Blood in stool nasal spray Allergy (Unknown, Uncoded 09/20/16 16:44) See Comments unsure Date of admission: 09/20/16 17:01 Primary care physician: Mk Joe MD Consults: 09/20/16 13:22 Consult to Physician [CONS] Routine Consulting Provider: Cordell Pond Reason for Consult: GI bleeding. Possible upper Call Completed: Yes 09/20/16 20:01 Consult to Invasive Line Access Team [CONS] Stat Reason for Consult: Acute blood loss anemia. Limited vascular access. Need for continuous fluid maintenance and transfusion of blood products. Line Type: EPIV PICC line indications: Limited vascular access Time Notified: 20:03 Call Completed: No Discharging clinician: Parish Page Anticipated date of discharge: 09/23/16 - Patient Status Disposition: Home, Self-Care Condition: Fair Functional capacity at discharge: independent ambulation Overall status at discharge: patient is progressing back to baseline - Discharge Instructions Follow Up With: Mk Joe MD [Primary Care Provider] - - Diet and Activity Activity: increase activity as tolerated Diet: advance to your usual diet Hospital course: Ms. Holguin is a 81 year old female who was admitted to [facility] for GI bleed. she would undergo a bleeding scan that showed no active bleeding. I would consult Dr. Pond who was component assembler. I discuussed my concerns for upper source given she had complained of black stools I also had conscern for diverticular bleeding given her age and how she described her bleeding. She would undergoe an EGD on her first day of admission. This was non diagnostic for her bleeding source. She would later have a colonoscopy. She had multiple large diverticula. She had no further episodes of bleeding after Day one of admission. Her Hg is treNDing dowm mildly ( 8.6 TODAY) but this is likely from dilution from IV fluids. Today her vitals are stable. she is normotensive. We will discharge her with follow up with PCP and General surgery. General Surgery Recommendations: If patient is readmitted for Bleeding recomend immediate bleeding scan if clinically stable to do so. It is quite possible she may bleed again in the future given the extent of her diverticulosis and it would be beneficial to know which side of the colon is bleeding as she has both left and right sided diverticulosis. - Time Spent with Patient Total time spent providing and/or coordinating discharge services: Greater than 30 minutes (I spent approximately 35 minutes discusseg discharge plan with the patient and family, discussing discharge plan with her surgeon and preparing her discharge and follow ups.) - Constitutional Vitals: Temp Pulse Resp BP Pulse Ox 98.3 F 90 16 152/76 96 09/23/16 10:57 05/03/17 10:57 09/23/16 10:57 09/23/16 10:57 09/23/16 10:57 General appearance: Present: A&O X 3, no acute distress - Head Head exam: Present: atraumatic, normocephalic - Eye Eye exam: Present: PERRL, conjuntiva pink, sclera anicteric Pupils: Present: PERRL - Neck Neck exam general surgery: Present: supple, trachea midline. Absent: lymphadenopathy - Respiratory Respiratory exam: Present: CTAB. Absent: accessory muscle use, rales, rhonchi, wheezes - Cardiovascular Cardiovascular exam: Present: RRR, +S1, +S2. Absent: diastolic murmur, gallop, rubs, systolic murmur - GI/Abdominal GI/Abdominal exam: Present: normal bowel sounds, soft, no peritoneal signs. Absent: distended, tenderness - Extremities Exam Extremities exam: Present: warm, radial pulses palpable and symetrical. Absent : calf tenderness, cyanotic, pedal edema - Skin Skin exam: Present: dry, intact <Ducu,Skinny - Last Filed: 09/23/16 18:53> Date of Encounter: 09/23/16 Date of admission: 09/20/16 17:01 Primary care physician: Mk Joe MD Consults: 09/20/16 13:22 Consult to Physician [CONS] Routine Consulting Provider: Cordell Pond Reason for Consult: GI bleeding. Possible upper Call Completed: Yes 09/20/16 20:01 Consult to Invasive Line Access Team [CONS] Stat Reason for Consult: Acute blood loss anemia. Limited vascular access. Need for continuous fluid maintenance and transfusion of blood products. Line Type: EPIV PICC line indications: Limited vascular access Time Notified: 20:03 Call Completed: No Hospital course: Ms. Holguin is a 81 year old female - Time Spent with Patient Total time spent providing and/or coordinating discharge services: - Constitutional Vitals: Temp Pulse Resp BP Pulse Ox 98.3 F 90 16 152/76 96 09/23/16 10:57 09/23/16 10:57 09/23/16 10:57 09/23/16 10:57 09/23/16 10:57 - Attending Attestation I examined this patient and my medical decision-making was reviewed with the Resident Physician, Dr. Page. I agree with the documented findings, disposition and treatment plan as described except to the extent set forth below. Patient appears in no acute distress. Heart exam reveals regular rate and rhythm, no murmur. Abdomen is soft nontender nondistended with normoactive bowel sounds. Plan: She was admitted for lower GI bleed secondary to acute diverticular bleed which has stopped at this point. I advised her to stop all nonsteroidal anti- inflammatory drugs including aspirin. Follow-up with primary care physician closely. She is medically stable for discharge.
== END 2016-09-23 12:55 | disposition home or self-care (01) | DRG 378 ==
LOC: 3ANU
PROVIDERS: ADMIT Internal Medicine; ATTEND Internal Medicine

== ENCOUNTER 2019-03-29 18:07 | Inpatient (IN) ==
[2019-03-29] MEDS ORDERED: *HR* Midazolam HCl 2 MG/2 ML VIAL IVP ONE (18:38)
[2019-03-29 19:20] LABS: Basophils # 0.1 K/mcL (0.0-0.2); Eosinophils # 0.1 K/mcL (0.0-0.6); Eosinophils % 2.7 %; Hematocrit 45.1 % (35.3-44.9); Hemoglobin 14.7 g/dL (11.5-15.4); Immature Granulocytes % 0.4 % (0-4); Lymphocytes # 1.2 K/mcL (0.6-4.6); Lymphocytes % 24.8 %; Mean Corpuscular HGB Conc 32.6 g/dL (31.6-35.5); Mean Corpuscular Hemoglobin 31.3 pg (28.0-33.3); Mean Corpuscular Volume 96.2 fL (83.0-100.0); Mean Platelet Volume 9.6 fL (9.4-12.4); Monocytes # 0.5 K/mcL (0.0-1.3); Monocytes % 9.2 %; Platelet Count 182 K/mcL (140-400); Red Blood Count 4.69 M/mcL (3.82-4.97); Segmented Neutrophils % 61.9 %; White Blood Count 4.9 K/mcL (4.3-11.1)
[2019-03-29 19:39] LABS: Bilirubin,Urine Negative (Negative); Blood,Urine Negative (Negative); Clarity,Urine Clear (Clear); Color,Urine Yellow (Yellow); Glucose,Urine (UA) Normal (Normal); Ketones,Urine Negative (Negative); Leukocyte Esterase,Urine Small (Negative); Nitrite,Urine Negative (Negative); PH,Urine 6.5 pH Units (5.0-8.0); Protein,Urine Negative (Neg-Trace); Specific Gravity,Urine 1.008 (1.010-1.025); Urobilinogen,Urine Normal (Normal)
[2019-03-29 19:41] LABS: Bacteria,Urine None Seen per hpf (None-Few); Hyaline Casts,Urine None Seen per lpf (None-Few); RBC,Urine 0-3 per hpf (0-3); Squamous Epithelial Cell,Urine Many per lpf (None-Few)
[2019-03-29 19:43] LABS: BUN/Creatinine Ratio 20 (6-26); Blood Urea Nitrogen 13 mg/dL (8-23); Calcium 9.8 mg/dL (8.6-10.3); Carbon Dioxide 25 mEq/L (23-29); Chloride 104 mEq/L (98-107); Glucose 108 mg/dL (70-105); Osmolality,Calculated 289 (280-300); Potassium 3.9 mEq/L (3.5-5.1); Sodium 139 mEq/L (136-145); eGFR For African Americans > 60 (> 60); eGFR For Non-African Americans > 60 (> 60)
[2019-03-29] MEDS ORDERED: Ondansetron 4 MG/2 ML VIAL IVP PRN (20:50)
[2019-03-29] MEDS ORDERED: Naloxone 0.4 MG/ML INJ IVP PRN (20:50)
[2019-03-30 05:37] LABS: Hematocrit 40.8 % (35.3-44.9); Hemoglobin 13.5 g/dL (11.5-15.4); Mean Corpuscular HGB Conc 33.1 g/dL (31.6-35.5); Mean Corpuscular Hemoglobin 31.1 pg (28.0-33.3); Mean Platelet Volume 9.8 fL (9.4-12.4); Platelet Count 186 K/mcL (140-400); Red Blood Count 4.34 M/mcL (3.82-4.97); Red Cell Distribution Width 13.2 % (11.5-14.5); White Blood Count 5.3 K/mcL (4.3-11.1)
[2019-03-30 05:54] LABS: BUN/Creatinine Ratio 25 (6-26); Blood Urea Nitrogen 20 mg/dL (8-23); Calcium 9.3 mg/dL (8.6-10.3); Carbon Dioxide 28 mEq/L (23-29); Chloride 104 mEq/L (98-107); Glucose 98 mg/dL (70-105); Magnesium 1.8 mg/dL (1.6-2.6); Osmolality,Calculated 293 (280-300); Potassium 3.9 mEq/L (3.5-5.1); Sodium 140 mEq/L (136-145); eGFR For African Americans > 60 (> 60); eGFR For Non-African Americans > 60 (> 60)
[2019-03-30] MEDS ORDERED: Lisinopril 20 MG TABLET PO SCH (09:00)
[2019-03-30] MEDS ORDERED: amLODIPine 5 MG TABLET PO SCH (14:19)
[2019-03-30] MEDS ORDERED: NON-FORMULARY MEDICATION 1 EACH EACH (Meclizine Hcl [Verticalm] 25 MG) PO PRN (18:34)
[2019-03-31] MEDS ORDERED: Lisinopril 20 MG TABLET PO SCH (09:00)
[2019-03-31] MEDS ORDERED: Metoprolol XL (24 HR) Succ 50 MG TAB.ER.24H PO SCH (09:00)
[2019-03-31] MEDS ORDERED: amLODIPine 5 MG TABLET PO SCH (09:11)
[2019-03-31 11:40] VITALS: BP 146/77
== END 2019-03-31 12:24 | disposition home or self-care (01) | DRG 305 ==
LOC: 3BNU 18:07 → EMEROOARM 18:07 → SUATTDRO 20:36 → 3BNU 21:13
PROVIDERS: ADMIT Internal Medicine; ATTEND Internal Medicine